=== PATIENT | female | born 1990 | race Caucasian/White ===

== ENCOUNTER 2018-01-24 06:09 | Inpatient (IN) | payer BC ==
[~2018-01-24 06:09] MED LIST: Famotidine IV* 10 MG/ML 2 ML (20 mg) IV ONE; Lactated Ringers 1000 ML Bag* 1,000 ML IV SCH; Metoclopramide IV* 5 MG/ML 2 ML VIAL IV SLOW PU ONE; Ondansetron ODT TAB* 4 MG PO ONE; Sodium Citrate/Citric Acid* 15 ML UDC PO ONE
[2018-01-24] MEDS ORDERED: Buffered Lidocaine 0.9% SYRIN* 5 ML/SYR SYRINGE INTRADERM ONE (06:30)
[2018-01-24] MEDS ORDERED: Lactated Ringers 1000 ML Bag* 1,000 ML IV ONE (06:40)
[2018-01-24] MEDS ORDERED: Gentamicin ADULT (*) 40 MG/ML VIAL (2 ML VIAL = 80 MG) IVPB ONE (06:43)
[2018-01-24] MEDS ORDERED: Clindamycin 900 MG/D5W BAG(*) 900 MG/50 ML BAG IVPB ONE (06:44)
--- NOTE | 2018-01-24 06:50 | HP ---
General Information - Reason for Visit at 40 weeks gestation, prior section. Admitted for a repeat at term. - General Information Maternal Age: 25 Grav: 2 Para: 1 SAB: 0 IEA: 0 Estimated Due Date: 01/21/18 Determined By: Early Ultrasound Gestational Age in Weeks/Days: 40 3/7 Maternal Blood Type and Rh: O Positive - Results this Serology/RPR Result: Non-Reactive Rubella Result: Immune HBsAg Result: Negative HIV Result: Negative GBS Culture Result: Negative Past Medical History Delivery History: Hx C/Section, See Records Pertinent Past Medical History: See Records Past Medical History Comment: Depression Anxiety Pertinent Past Surgical History: See Records Past Surgical History Comment: Section in 2012 and 2016 Pertinent Family History: See Records - Antepartal Records Antepartal Records: Reviewed, Complicated by: - Prior Section X 2 Review of Systems Constitutional: Comfortable CV Complaint: No Respiratory: Shortness of Breath: No Gastrointestinal: No Nausea/Vomiting, Normal Bowel Movement Genitourinary: No Dysuria, No Bleeding, No Leaking Fluid Musculoskeletal: No Complaint, No Epigastric Pain Neurological: No Headache, No Visual Changes Movement: Normal Exam Allergies/Adverse Reactions: Allergies Penicillins Allergy (Verified 01/23/18 15:23) Rash stated allergic to "all -cillins" with getting rashes in childhood Temp 98.78 BP 134/82 RR 18 P 72 - Measurements Height: 5 ft 6 in Weight: 210 lb Weight in lbs: 210.286745 Body Mass Index (BMI): 33.9 Pre- Weight: 183 lb Weight Gained This : 2 lbs and 0 ozs - Exam Breast: Breast Exam Deferred CVA: No CVA Tenderness Extremities: No Edema Heart: Normal Rhythm/Heart Sounds HEENT: No Significant Findings Lungs: Clear Bilaterally Rectal: Rectal Exam Deferred Reflexes: DTR 2+ Thyroid: No Thyromegaly - Abdominal Exam Abdomen Exam: Non-Tender, Fundal Height Consistent with Dates - Ultrasound/Biophysical Profile Ultrasound Status: Not Done Targeted Exam Findings See L&D Outpatient Visit Provider Note for Findings: N/A Estimated Weight: 3700gms Cervical Exam: Closed Effacement: <50% Station: -1 Presenting Part: Vertex Bleeding/Discharge: None EFM Findings - External Monitor Findings Baseline Heart Rate: 140 External Monitor Findings: Accelerations Present Contractions: None Assessment/Plan - Assessment at Term, Prior X2. - Obstetrical Risk Factors Obstetrical Risk Factors: Obesity Risk Factors Comment: Prior X 2 - Plan Plan: IV Hydration, Antibiotic Prophylaxis, C/S Delivery - Date/Time of Admission Date of Admission: 01/24/18 Time of Admission: 07:00
[2018-01-24] MEDS ORDERED: Lactated Ringers 1000 ML Bag* 1,000 ML IV SCH ×2 (07:00→12:00)
[2018-01-24] MEDS ORDERED: Gentamicin ADULT (*) 90 MG in NS 0.9% 100 ML* 100 ML IVPB ONE ×2 (08:00→08:15)
[2018-01-24] MEDS ORDERED: Bupivacaine-MPF SPINAL* 7.5 MG/ML - 2ML AMP ONE (09:16)
[2018-01-24] MEDS ORDERED: OXYTOCIN* 10 UNITS/ML 1 ML VIAL ONE (09:50)
[2018-01-24] MEDS ORDERED: Ondansetron INJ* 2 MG/ML VIAL IV PRN (10:18)
[2018-01-24] MEDS ORDERED: Naloxone* 0.4 MG/ML 1 ML VIAL IV PRN (10:18)
[2018-01-24] MEDS ORDERED: Ketorolac INJ* 30 MG/ML 1 ML VIAL IV PRN (10:18)
[2018-01-24] MEDS ORDERED: HYDROmorphone INJ* 0.5 MG/0.5 ML SYRINGE IV PRN (10:18)
[2018-01-24] MEDS ORDERED: Acetaminophen IV 1GM/100ML * 1,000 MG/100 ML VIAL IVPB ONE (10:18)
[2018-01-24] MEDS ORDERED: Oxytocin in LR* 20 UNITS/1,000 ML BAG IVPB ONE (10:44)
[2018-01-24] MEDS ORDERED: Lidocaine 1% MPF wEPI 200,000* 30 ML SDV ONE (10:50)
[2018-01-24] MEDS ORDERED: Zolpidem TAB* 5 MG PO PRN (11:04)
[2018-01-24] MEDS ORDERED: Glycerin ADULT SUPP PR PRN (11:04)
[2018-01-24] MEDS ORDERED: oxyCODONE/Acetamin 5/325 MG* TAB PO PRN ×2 (11:04)
[2018-01-24] MEDS ORDERED: Dibucaine 1% 28.35 GM TUBE PR PRN (11:04)
[2018-01-24] MEDS ORDERED: Witch Hazel PAD* JAR TOPICAL PRN (11:04)
[2018-01-24] MEDS: Docusate CAP* 100 MG PO SCH ×2 (15:36→20:15)
[2018-01-24] MEDS: Simethicone TAB* 80 MG TAB.CHEW PO SCH ×3 (15:37→20:16)
[2018-01-24] MEDS: Acetaminophen TAB* 325 MG PO PRN ×2 (16:26→20:15)
[2018-01-24] MEDS: Ibuprofen TAB* 600 MG PO PRN ×2 (17:38→23:30)
[2018-01-25] MEDS: Acetaminophen TAB* 325 MG PO PRN ×4 (03:02→20:09)
[2018-01-25] MEDS: Ibuprofen TAB* 600 MG PO PRN ×3 (05:49→20:08)
[2018-01-25 06:48] LABS: ABS Basophils 0 10^3/ul (0-0.2); ABS Eosinophils 0 10^3/ul (0-0.6); ABS Lymphocytes 1.4 10^3/ul (1.0-4.8); ABS Monocytes 0.8 10^3/ul (0-0.8); ABS Neutrophils 8.6 10^3/ul (1.5-7.7); ABS Nucleated RBC 0 10^3/ul; Eosinophil % 0.3 % (0-6); Hematocrit 30 % (35-47); Hemoglobin 10.1 g/dl (12.0-16.0); Lymphocyte % 12.7 % (25-47); Mean Corpuscular HGB Conc 34 g/dl (31-36); Mean Corpuscular Hemoglobin 30 pg (27-31); Mean Corpuscular Volume 88 fL (80-97); Mean Platelet Volume 9.9 fL (7.4-10.4); Nucleated Red Blood Cells % 0; Platelet Count 134 10^3/ul (150-450); Red Blood Count 3.36 10^6/ul (4.00-5.40); Red Cell Distribution Width 14 % (10.5-15); White Blood Count 10.8 10^3/ul (3.5-10.8)
[2018-01-25] MEDS: Docusate CAP* 100 MG PO SCH ×3 (08:15→20:09)
[2018-01-25] MEDS: Simethicone TAB* 80 MG TAB.CHEW PO SCH ×4 (08:15→20:09)
[2018-01-25] MEDS ORDERED: Ferrous Gluconate TAB* 324 MG TAB PO SCH (09:00)
[2018-01-25 19:57] VITALS: BP 125/69
[2018-01-26] MEDS: Ibuprofen TAB* 600 MG PO PRN (02:21)
--- NOTE | 2018-01-26 03:04 | OP ---
DATE OF OPERATION: 01/24/18 - ROOM #116 DATE OF : 89 SURGEON: Zach Courtney MD BUCKET TURNER: Dr. Higgins. ANESTHESIA: Spinal. PRE-OP DIAGNOSIS: Intrauterine at 40 weeks, prior section x2. POST-OP DIAGNOSIS: Intrauterine at 40 weeks, prior section x2. OPERATIVE PROCEDURE: Repeat low transverse section. ESTIMATED BLOOD LOSS: 600 cc. SPECIMEN SENT TO PATHOLOGY: Cord blood. FLUIDS: She received 1900 cc of IV crystalloid fluid. URINE OUTPUT: Clear, 300 cc. FINDINGS: Delivery of a viable male infant weighing 9 pounds 12 ounces over clear fluid with Apgars of 9 and 9. Nuchal cord x1. The placenta was grossly intact with a 3-vessel cord noted. The uterus, adnexa, bowel, and bladder were within normal limits. There were no complications. DESCRIPTION OF PROCEDURE: The patient was taken to the operating room where she was identified. She was placed on the operating table where a spinal anesthetic was obtained without difficulty. She was placed in the supine position with a leftward tilt, prepped and draped in a normal sterile fashion. A Pfannenstiel skin incision was made with a knife and carried through to the underlying layer of fascia. The fascia was nicked in the midline and extended laterally with curved Banks scissors. The fascia was then grasped superiorly and inferiorly with Kunal clamps and dissected off sharply from the rectus muscle. The rectus muscle was in the midline bluntly. The peritoneum was identified, grasped with pickups, and entered sharply with Metzenbaum scissors. The peritoneum was then extended superiorly, inferiorly, sharply. A bladder blade was inserted into the patient's abdomen. A bladder flap was created using Metzenbaum scissors, after which the bladder blade was then re-inserted. A low transverse uterine incision was made with a knife and extended laterally with bandage scissors. Amniotic sac was ruptured. The fluid was noted to be clear. The infant's head was then grasped and delivered atraumatically. The nose and mouth were suctioned. The rest of the infant's body was then delivered. The cord was clamped and cut, and the was handed off to awaiting railroad police officer. Cord bloods were obtained. Placenta was removed manually. The uterus was then exteriorized and cleared of all clots and debris using moist laparotomy sponges. The uterine incision was then closed using 0 Polysorb suture in a running locked fashion with a second imbricating layer of 0 Polysorb suture with good hemostasis noted. The uterus was then returned to the patient's abdomen. The abdomen was irrigated with normal saline. The fluid was then suctioned. The gutters were then cleared of all clot and debris using moist laparotomy sponges. All the instruments were removed from the patient's abdomen. The peritoneum was then closed using 0 Polysorb suture in a running fashion. The fascia was closed using 0 Polysorb suture in a running fashion. The subcutaneous layer of Joe's fascia was closed using interrupted 3-0 Polysorb suture and the skin was closed with a 4-0 Monocryl subcuticular stitch. The patient tolerated the procedure well. The sponge, lap, needle counts were correct x2 She was then transferred to recovery room area in stable condition. [id number]/[facility] #: [id number] MTDD
== END 2018-01-26 10:23 | disposition home or self-care (01) | DRG 540 ==
LOC: MCHOB 06:09
PROVIDERS: ADMIT Obstetrics & Gynecology; ATTEND Obstetrics & Gynecology
PROC: 4A1HXCZ Monitoring of Products of Conception, Cardiac Rate, External Approach (ICD-10-PCS; 2018-01-24)
PROC: 10D00Z1 Extraction of Products of Conception, Low, Open Approach (ICD-10-PCS; principal; 2018-01-24 07:45)
DX: O34.211 Maternal care for low transverse scar from previous cesarean delivery (principal); O99.214 Obesity complicating childbirth; O69.81X0 Labor and delivery complicated by cord around neck, without compression, not applicable or unspecified; O48.0 Post-term pregnancy; Z3A.40 40 weeks gestation of pregnancy; Z37.0 Single live birth; Z88.0 Allergy status to penicillin
CPT/HCPCS: 36415; 85025; A9270-GY; J1580; J1885; J2001; J2590; J2765

== ENCOUNTER 2019-04-08 14:08 | Emergency (ER) | payer BC ==
--- OUTSIDE RECORDS SUMMARY | 2019-04-08 15:38 | XMS REPORT | Continuity of Care Document ---
:1990 External Reference #:[id number] Author Name Stefano Nino MD (transmitted by agent of provider Ele Gant) Address [address] [place] [id number] Care Team Providers Name Role Phone Michael Yao MD - Family Medicine Care Team Information Cer[employer] Machine Problems Active Problems Provider Date Edema Stefano Nino MD Onset: 01/26/2019 Closed fracture of phalanx of foot Stefano Nino MD Onset: 02/05/2019 Social History Type Date Description Comments Sex Unknown Tobacco Use Start: Unknown Never Smoked Cigarettes Smoking Status Reviewed: 02/05/19 Never Smoked Cigarettes ETOH Use Denies alcohol use Tobacco Use Start: Unknown Patient has never smoked Exercise Type/Frequency Exercises sporadically Allergies, Adverse Reactions, Alerts Active Allergies Reaction Severity Comments Date Penicillin 01/26/2019 Medications Active Medications SIG Qnty Indications Ordering Provider Date Control Unknown Immunizations Description No Information Available Vital Signs Date Vital Result Comment 03/16/2019 10:26am Height 65 inches 5'5" Weight 200.00 lb Heart Rate 70 /min BP Systolic 110 mmHg BP Diastolic 60 mmHg Respiratory Rate 14 /min Body Temperature 98.0 F Pain Level 4 BMI (Body Mass Index) 33.3 kg/m2 02/05/2019 2:22pm Height 65 inches 5'5" Weight 200.00 lb Heart Rate 92 /min BP Systolic 128 mmHg BP Diastolic 82 mmHg Respiratory Rate 18 /min Body Temperature 98.1 F Pain Level 3 BMI (Body Mass Index) 33.3 kg/m2 Results Description No Information Available Procedures Description No Information Available Medical Devices Description No Information Available Encounters Type Date Location Provider Dx Diagnosis Office Visit 02/05/2019 [facility] Stefano Nino S92.512A Disp fx of 2:00p at [place] MD proximal phalanx of left lesser toe(s), init Office Visit 01/26/2019 [facility] Stefano Nino, R60.0 Localized edema 8:00a at [place] MD Assessments Date Code Description Provider 03/16/2019 S92.512A Displaced fracture of proximal phalanx of left Stefano Nino MD lesser toe(s), initial encounter for closed fracture 02/05/2019 S92.512A Displaced fracture of proximal phalanx of left Stefano Nino MD lesser toe(s), initial encounter for closed fracture 01/26/2019 R60.0 Localized edema Stefano Nino MD Plan of Treatment Future Appointment(s):03/21/2019 7:30 am - Jh Couch M.D. at [facility]03/16/2019 - Stefano Nino, MDS92.512A Displaced fracture of proximal phalanx of left lesser toe(s), initial encounter for closed fractureFollow up:Follow Up: As needed Functional Status Description No Information Available Mental Status Description No Information Available Referrals Refer to Reason for Referral Status Appt Date Jh Couch MD RLE swelling Scheduled 03/21/[address] [place] [id number] [phone]
--- OUTSIDE RECORDS SUMMARY | 2019-04-08 15:38 | XMS REPORT | Continuity of Care Document ---
:1990 External Reference #:[id number] Author Name Jh Couch M.D. (transmitted by agent of provider Bonita Noet) Address [address] [place] [address] Care Team Providers Name Role Phone Michael Yao MD - Family Medicine Care Team Information [employer]os [employer] [phone] Problems Active Problems Provider Date Edema Stefano Nino MD Onset: 01/26/2019 Localized superficial swelling of skin Jh Couch M.D. Onset: 2019 Closed fracture of phalanx of foot Stefano Nino MD Onset: 02/05/2019 Social History Type Date Description Comments Sex Unknown Tobacco Use Start: Unknown Never Smoked Cigarettes Smoking Status Reviewed: 03/21/19 Never Smoked Cigarettes ETOH Use Denies alcohol use Tobacco Use Start: Unknown Patient has never smoked Recreational Drug Use Denies Drug Use Exercise Type/Frequency Exercises sporadically Allergies, Adverse Reactions, Alerts Active Allergies Reaction Severity Comments Date Penicillins 03/21/2019 Shrimp Allergenic Extract 03/21/2019 Inactive Allergies NKDA 03/21/2019 Medications Active Medications SIG Qnty Indications Ordering Provider Date Control Unknown Immunizations Description No Information Available Vital Signs Date Vital Result Comment 03/21/2019 7:21am Height 65 inches 5'5" Weight 214.00 lb w/ shoes Heart Rate 84 /min L. radial, regular BP Systolic Sitting 132 mmHg LA, reg cuff BP Diastolic Sitting 62 mmHg LA, reg cuff BMI (Body Mass Index) 35.6 kg/m2 03/16/2019 10:26am Height 65 inches 5'5" Weight 200.00 lb Heart Rate 70 /min BP Systolic 110 mmHg BP Diastolic 60 mmHg Respiratory Rate 14 /min Body Temperature 98.0 F Pain Level 4 BMI (Body Mass Index) 33.3 kg/m2 Results Description No Information Available Procedures Description No Information Available Medical Devices Description No Information Available Encounters Type Date Location Provider Dx Diagnosis Office Visit 02/05/2019 [facility] Stefano Nino, S92.512A Disp fx of 2:00p at [place] proximal phalanx of left lesser toe(s), init Office Visit 01/26/2019 [facility] Stefano Nino, R60.0 Localized edema 8:00a at [place] Assessments Date Code Description Provider 03/21/2019 R22.41 Localized swelling, mass and lump, right Jh Couch M.D. lower limb 03/16/2019 S92.512A Displaced fracture of proximal phalanx of Stefano Nino MD left lesser toe(s), initial encounter for closed fracture 02/05/2019 S92.512A Displaced fracture of proximal phalanx of Stefano Nino MD left lesser toe(s), initial encounter for closed fracture 01/26/2019 R60.0 Localized edema Stefano Nino MD Plan of Treatment 03/21/2019 - Jh Couch M.D.R22.41 Localized swelling, mass and lump, right lower limbComments:The following was discussed with Tamara total time of her consultation:Potentially Tamara may be suffering from a venous compression syndrome though the most common, May 30 syndrome, classically of flex the left lower extremity. Other than the chronic right foot swelling, he does not exhibit any other signs of either venous insufficiency or varicose veins. She is also not expressed any symptoms characteristic of pelvic congestion syndrome.She has never had a CT of her abdomen and pelvis and a CT venogram with contrast injected into the distal right lower extremity may reveal a compression syndrome responsible for her symptoms.Recommendations:1. CTV with contrast injection into the distal right lower leg. 2. I advised the patient wear knee-high compression stockings during awake hours and provided a paper prescription. Functional Status Description No Information Available Mental Status Description No Information Available Referrals Refer to Reason for Referral Status Appt Date Jh Couch MD RLE swelling Scheduled 03/21/[address] [place] [address] [phone]
--- NOTE | 2019-04-08 15:46 | UC ---
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---she is allergic to PCN but she has taken several of "its cousins " with out any troubles - History of Current Complaint Chief Complaint: UCRespiratory Stated Complaint: sore THROAT Time Seen by Provider: 04/08/19 15:46 Hx Obtained From: Patient Hx Last Menstrual Period: June 2014 - ?: No Onset/Duration: Sudden Onset, Lasting Days - 1 Severity Currently: Mild Severity Initially: Moderate Associated Signs & Symptoms: Positive: Fever, Myalgia, Sore Throat, Headache Related Hx: Possible Flu/Infectious Exposure - Allergy/Home Medications Allergies/Adverse Reactions: Allergies Allergy/AdvReac Type Severity Reaction Status Date / Time Penicillins Allergy Rash Verified 01/23/18 15:23 shrimp Allergy Difficulty Verified 04/08/19 15:48 Breathing/Wheezing PMH/Surg Hx/FS Hx/Imm Hx Previously Healthy: Yes - Surgical History Surgical History: Yes Surgery Procedure, Year, and Place: csection x2 - Family History Known Family History: Positive: Hypertension - Social History Occupation: Employed Full-time Lives: With Family Alcohol Use: None Substance Use Type: None Smoking Status (MU): Never Smoked Tobacco Have You Smoked in the Last Year: No - Immunization History Most Recent Influenza Vaccination: 12/24/14 Most Recent Tetanus Shot: "up to date" Most Recent Pneumonia Vaccination: none Review of Systems All Other Systems Reviewed And Are Negative: Yes Constitutional: Positive: Fever, Chills, Fatigue Skin: Positive: Negative Eyes: Positive: Negative ENT: Positive: Sore Throat Respiratory: Positive: Negative Cardiovascular: Positive: Negative Gastrointestinal: Positive: Negative Genitourinary: Positive: Negative Motor: Positive: Negative Neurovascular: Positive: Negative Musculoskeletal: Positive: Myalgia Neurological: Positive: Negative Psychological: Positive: Negative Is Patient Immunocompromised?: No Physical Exam Triage Information Reviewed: Yes Appearance: No Pain Distress, Well-Nourished, Ill-Appearing - mild-moderate Vital Signs Reviewed: Yes Eye Exam: Normal ENT Exam: Normal ENT: Positive: Normal ENT inspection, Hearing grossly normal, Pharyngeal erythema, TMs normal, Uvula midline. Negative: Nasal congestion, Tonsillar swelling, Tonsillar exudate, Trismus, Muffled voice, Hoarse voice, Dental tenderness, Sinus tenderness Dental Exam: Normal Neck exam: Normal Neck: Positive: Supple, Nontender Respiratory Exam: Normal Respiratory: Positive: Chest non-tender, Lungs clear, Normal breath sounds, No respiratory distress, No accessory muscle use Cardiovascular Exam: Normal Cardiovascular: Positive: RRR, No Murmur, Pulses Normal, Brisk Capillary Refill Musculoskeletal Exam: Normal Musculoskeletal: Positive: Strength Intact, ROM Intact, No Edema Neurological Exam: Normal Neurological: Positive: Alert, Muscle Tone Normal Psychological Exam: Normal Skin Exam: Normal Diagnostics - Laboratory Lab Results: RST + Flu Course/Dx - Course Course Of Treatment: omnicef, increase fluids tylenol ibuprofen follow with pcp prn - Differential Dx/Diagnosis Provider Diagnosis: Strep pharyngitis Discharge ED - Sign-Out/Discharge Documenting (check all that apply): Patient Departure All imaging exams completed and their final reports reviewed: No Studies - Discharge Plan Condition: Stable Disposition: HOME Prescriptions: Cefdinir [Cefdinir 300 MG CAP] 300 mg PO BID #14 capsule Patient Education Materials: Strep Throat (ED) Referrals: Michael Yao MD [Primary Care Provider] - 2 Weeks - Billing Disposition and Condition Condition: STABLE Disposition: Home
[2019-04-08 15:47] VITALS: BP 115/76
[2019-04-08 16:24] LABS: Influenza A Molecular NEGATIVE (Negative); Influenza B Molecular NEGATIVE (Negative)
[2019-04-08] MEDS ORDERED: Ibuprofen TAB* 600 MG PO ONE (16:26)
== END 2019-04-08 16:40 | disposition home or self-care (01) ==
LOC: UCEAST 14:08
DX: J02.0 Streptococcal pharyngitis (principal); M79.10 Myalgia, unspecified site; R53.83 Other fatigue; Z88.0 Allergy status to penicillin; Z91.013 Allergy to seafood
CPT/HCPCS: 87651; 99212; A9270-GY; G0463